=== PATIENT | female | born 1970 | race Caucasian/White ===

== ENCOUNTER 2024-08-31 15:30 | Outpatient (CLI) | payer SELFPAY ==
--- OUTSIDE RECORDS SUMMARY | 2024-08-31 15:39 | XMS_ITS | Clinical Summary ---
Author Organization [facility] Address [address] [place] [address] Care Team Providers Care Vice President Education Name Role Phone Huyen Vizcarra MD Primary Care Provider [phone] Huyen Vizcarra MD Unavailable [phone] [facility],non-owned Affiliates and Associated Physician Practices is amultiple site organization consisting of ambulatory clinics and hospital sitesin [place], [place], [place] and [place]. This disclosure is being madepursuant to the Care Everywhere program and may not contain all information available regarding this patient. Last updated 17.[facility] Allergies No known active allergies Medications * Be aware that medications may not be up to date on this document. Alwaysverify current medications with the patient. loratadine-pseud oephedrine 12hr (CLARITIN-D 12 HOUR) 5-120 MG tablet Take 1 tablet by mouth 2 times daily Active polyethylene glycol (GOLYTELY;NULYTE LY) 240 g solution Drink 1/2 of prep at 5pm the night before test. Finish the prep at 4am the day of test. 4000 mL 12/13/2019 Active Social History Tobacco Use Types Packs/Day Years Used Date Smoking Tobacco: Never Smokeless Tobacco: Never Alcohol Use Standard Drinks/Week Comments Yes 8 (1 standard drink = 0.6 oz pur e alcohol) drinks on weekends Comments No Sex and Gender Information Value Date Recorded Sex Assigned at Not on file Legal Sex Female 11:54 AM CDT Gender Identity Not on file Sexual Orientation Not on file Last Filed Vital Signs Vital Sign Reading Time Taken Comments Blood Pressure 126/92 12/14/2019 2:11 PM CDT Pulse 72 12/14/2019 2:11 PM CDT Temperature 36.6 C (97.8 F) 12/14/2019 2:11 PM CDT Respiratory Rate 16 12/14/2019 2:11 PM CDT Oxygen Saturation 100% 12/14/2019 2:11 PM CDT Inhaled Oxygen Concentration - - Weight 59.1 kg (130 lb 5 oz) 12/14/2019 12:16 PM CDT Height 160 cm (5' 3) 10/13/2018 5:54 PM CDT Body Mass Index 23.08 10/13/2018 5:54 PM CDT Plan of Treatment Health Maintenance Due Date Last Done Comments COLOGUARD (AGES 45-75) - COL ON CA SCREENING 1970 CT COLONOGRAPHY - COLON CA SCREENING 1970 FIT - COLON CA SCREENING 1970 FLEX SIG - COLON CA SCREENING 1970 LIPID TESTING 1970 MAMMOGRAM 1970 PAP SMEAR 1970 HIV SCREENING 01/13/1984 HEPATITIS C SCREENING 01/08/1987 DTAP/TDAP/TD VACCINES (1 - Tdap) 01/13/1988 HEPATITIS B VACCINE (1 of 3 - 19+ 3-dose series) 01/13/1988 PNEUMOCOCCAL VACCINE 50+ (1 of 1 - PCV) 2019 ZOSTER VACCINE (1 of 2) 2019 COVID-19 VACCINE (1 - 2023-2 5 season) 2023 DEPRESSION SCREENING 04/06/2024 INFLUENZA VACCINE (Season Ended) 2024 01/24/2019, 01/18/2018, 01/19/2017 COLON MONITORING 12/13/2029 12/14/2019, 12/14/2019 COLONOSCOPY - COLON CA SCREENING 12/13/2029 12/14/2019, 12/14/2019 Colorectal Cancer Screening 12/13/2029 HIB VACCINE Aged Out No longer eligi ble based on patient's age to complete this topic HPV VACCINE Aged Out No longer eligi ble based on patient's age to complete this topic MENINGOCOCCAL (Group B) VACCINE SHARED DECISION-MAKING Aged Out No longer eligible based on patient's age to complete this topic MENINGOCOCCAL GROUPS A/C/Y/W VACCINE Aged Out No longer eligible b ased on patient's age to complete this topic Procedures Procedure Name Priority Date/Time Associated Diagnosis Comments ENDOSCOPY, COLON, SCREENING Routine 12/14/2019 12:51 PM CDT from Last 3 Months or Most Recently Relevant to Health Maintenance Results * ENDOSCOPY, COLON, SCREENING (12/14/2019 12:51 PM CDT) Report Endoscopy POC Endoscopy Department Report _ Patient Name: Zeb Perez Procedure Date: 12/14/2019 12:51 PM Date of : 1970 Classification: Outpatient Gender: Female Ethnicity: Not or Race: White _ Providers: Catalina Patricio MD Referring MD: Huyen Vizcarra MD (Referring MD) Procedure: Colonoscopy Indications: Screening for colorectal malignant neoplasm, This is the patient's first colonoscopy Medications: Monitored Anesthesia Care Description of Procedure: Pre-Anesthesia Assessment: - Prior to the procedure, a History and Physical was performed, and patient medications and allergies were reviewed. The patient's tolerance of previous anesthesia was also reviewed. The risks and benefits of the procedure and the sedation options and risks were discussed with the patient. All questions were answered, and informed consent was obtained. Prior Anticoagulants: The patient has taken no previous anticoagulant or antiplatelet agents except for aspirin. ASA Grade Assessment: II - A patient with mild systemic disease. After reviewing the risks and benefits, the patient was deemed in satisfactory condition to undergo the procedure. After I obtained informed consent, the scope was passed under direct vision. Throughout the procedure, the patient's blood pressure, pulse, and oxygen saturations were monitored continuously. The PCF-[id number] was introduced through the anus and advanced to the cecum, identified by appendiceal orifice and ileocecal valve. The colonoscopy was performed without difficulty. The patient tolerated the procedure well. The quality of the bowel preparation was evaluated using the BBPS ([place] Bowel Preparation Scale) with scores of: Right Colon = 2 (minor amount of residual staining, small fragments of stool and/or opaque liquid, but mucosa seen well), Transverse Colon = 2 (minor amount of residual staining, small fragments of stool and/or opaque liquid, but mucosa seen well) and Left Colon = 3 (entire mucosa seen well with no residual staining, small fragments of stool or opaque liquid). The total BBPS score equals 7. The quality of the bowel preparation was good. The ileocecal valve, appendiceal orifice, and rectum were photographed. Findings: The perianal and digital rectal examinations were normal. The entire examined colon appeared normal on direct and retroflexion views. Estimated Blood Loss: Estimated blood loss: none. Complications: No immediate complications. Impression: - The entire examined colon is normal on direct and retroflexion views. - No specimens collected. Recommendation: - Patient has a contact number available for emergencies. The signs and symptoms of potential delayed complications were discussed with the patient. Return to normal activities tomorrow. Written discharge instructions were provided to the patient. - Resume previous diet. - Continue present medications. - Repeat colonoscopy in 10 years for surveillance. - Return to referring physician as previously scheduled. Attending Participation: I personally performed the entire procedure. Procedure Code(s): --- Professional --- 91183, Colonoscopy, flexible; diagnostic, including collection of specimen(s) by brushing or washing, when performed (separate procedure) Diagnosis Code(s): --- Professional --- Z12.11, Encounter for screening for malignant neoplasm of colon CPT copyright 2019 [employer]. All rights reserved. The codes documented in this report are preliminary and upon anesthesiology faculty review may be revised to meet current compliance requirements. Catalina Patricio MD 12/14/2019 1:45:57 PM This report has been signed electronically. Note Initiated On: 12/14/2019 12:51 PM Number of Addenda: 0 [facility] [address] [place] [address] [facility] 12/14/2019 12:5 1 PM CDT us Jessica Cr MD GI PROCEDURE ORDERABLES E dited Result - Final [facility] from Last 3 Months or Most Recently Relevant to Health Maintenance Insurance [place] [id number] [facility] Care Teams Vice President Education Relationship Specialty Start Date End Date Huyen Vizcarra MD [address] [place] [address] PCP - General 12/26/19 Huyen Vizcarra MD [address] [place] [address] Internal Medicine 12/26/19
--- OUTSIDE RECORDS SUMMARY | 2024-08-31 15:39 | XMS_ITS | Referral Summary ---
Author Organization [facility] Address [address] [place] [id number] Care Team Providers Care Policy And Planning Manager Name Role Phone Jessica Marquis MD Primary Care Provider Allergies Active Allergy Reactions Criticality Noted Date Comments Sulfa (Sulfonamide Antibiotics) Unknown 08/05 Medications acidophilus-pec tin, citrus 100 million cell-10 mg capsule Take by mouth Active estradioL (ESTRACE) 0.01 % (0.1 mg/gram) vaginal cream Apply nightly to vagina for 1 week, then Thursday// Thursday 42.5 g 5 2023 Active ALPRAZolam (XANAX) 0.25 mg tablet Take 1 tablet (0.25 mg total) by mouth nightly as needed for anxiety 15 tablet 09/08/2023 Active Allergy Relief,Nasal Decongest 10-240 mg per 24 hr tabletIndicatio ns:Environmenta l allergies Take 1 tablet by mouth once daily 90 tablet 08/01/2024 Active Active Problems No known active problems Immunizations Immunization Administration Dates Next Due Influenza, Quadrivalent, Spl it, Preservative Free, Intramuscular 01/14/2021,01/16/2020,01/24/2019,01/18,01/19/2017 Influenza, Unspecified 01/21/2023(Deferr ed: Patient Refused),01/15/2022(Deferred: Patient Refused),01/04/2022(Deferred: Patient Refused) Pfizer SARS-CoV-2 Monovalent Vaccination (12+ Yrs) PURPLE 07/22/2020,07/01/2020 Tdap 08/28/2020 ZOSTER Recombinant 10/04/2019,05/04/2019 Social History Tobacco Use Types Packs/Day Years Used Date Smoking Tobacco: Never Tobacco Cessation:Counseling Given: Not Answered AUDIT-C Answer Date Recorded Q1: How often do you have a drink containing alc ohol? Monthly or less 08/28/2020 Q2: How many drinks containi ng alcohol do you have on a typical day when you are drinking? 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 Gender Identity Not on file Sexual Orientation Not on file Last Filed Vital Signs Vital Sign Reading Time Taken Comments Blood Pressure 110/72 09/21/2023 1:28 PM CDT Pulse 84 09/21/2023 1:28 PM CDT Temperature 37.1 C (98.8 F) 09/21/2023 1:28 PM CDT Respiratory Rate - - Oxygen Saturation 98% 09/21/2023 1:28 PM CDT Inhaled Oxygen Concentration - - Weight 61.1 kg (134 lb 9.6 oz) 09/21/2023 1:28 P M CDT Height 160 cm (5' 3) 09/21/2023 1:28 PM CDT Body Mass Index 23.84 09/21/2023 1:28 PM CDT Plan of Treatment Not on file Procedures Procedure Name Priority Date/Time Associated Diagnosis Comments SCREENING MAMMOGRAM BILATERAL W RICCO Schedule Routine, Read Routine (OP Routine) 05/12/2024 1:11 PM PIT LABORER Screening mammogram, encounter for PAP AND HIGH RISK HPV, REFLEX TO GENOTYPING Routine 2023 12:10 PM CDT Well woman exam COLONOSCOPY Routine 12/14/2019 from Last 3 Months or Most Recently Relevant to Health Maintenance Results * Screening Mammogram Bilateral W Ricco (05/12/2024 1:11 PM PIT LABORER) Anatomical Region Laterality Modality Breast Bilateral Mammography Impressions 05/16/2024 3:43 PM PIT LABORER BI-RADS ATLAS category (overall): 1 - Negative There is no mammographic evidence of malignancy. A 1 year screening mammogram is recommended. The patient has been or will be contacted. We recommend annual screening mammography for women at average risk of breast cancer beginning at age 40, based on guidelines of the [place] (ACR Practice Parameter for the Performance of Screening and Diagnostic Mammography) and [place] [employer]. For women with and elevated risk of breast cancer, please refer to the ACR Practice Parameter for specific screening recommendations. The patient will be entered into a reminder system with a target due date of 1 year for her next screening exam. Narrative 05/16/2024 3:43 PM PIT LABORER Screening Mammogram Bilateral W Ricco: 05/12/24 The study was acquired using full field digital technology and interpreted from soft copy. 2D digital mammographic views, as well as 3D digital tomosynthesis were performed in the CC and MLO projections. This study was resulted using Computer-Aided Detection (CAD). CLINICAL: Screening mammogram, encounter for. No relevant medical history has been documented for this patient. History of breast cancer in Neg Hx. No comparisons were made when reading this study. BREAST TISSUE: The breasts are heterogeneously dense, which may obscure small masses. FINDINGS: No suspicious masses, suspicious calcifications, or other suspicious findings are seen within either breast. There has been no suspicious change. us Self Screening Mammogram IMG MAMMO PROCEDURES Fi nal Result * Pap and High Risk HPV and Genotyping (Cytology Component) (2023 12:10 PM CDT) Endocervical (Pap test) 2023 12:10 PM CDT 01/13/2023 12:10 PM CDT Narrative PATHOLOGY [facility] - 01/15/2023 3:48 PM CDT [facility] Department of Pathology [address] [place] [id number] Final Report with Addendum Note to Patients: This report may contain a detailed description of human tissue sent by a health care provider to the laboratory for pathologic evaluation. The content of this report is essential for diagnosis and may provide important critical findings. This information may be unfamiliar to patients to review without a medical professional present. It is advised that the patient review this report in the presence of a health care provider who can answer questions and explain the details. Patient Name: ZEB PEREZ Address: [address] [place] [address] Gender: F : 1970 (Age: 53) Service: Location: N : [id number] [facility] #: [id number] Patient Type: [facility] SPECIMEN Taken: 2023 Received: 01/13/2023 Accessioned:: 01/13/2023 Reported: 01/15/2023 Physician(s): Lizabeth Graff M.D. [facility] Diagnosis: SOURCE OF SPECIMEN SCREENING THIN PREP IMAGED PAP w/ HPV: STATEMENT OF ADEQUACY - Specimen satisfactory for evaluation (vaginal pap) GENERAL CATEGORIZATION: - Negative for intraepithelial lesion or malignancy JOHNATHAN Hernandes(ASCP)JOHNATHAN Daniel(ASCP) Report Electronically Reviewed and Signed Out By JOHNATHAN Daniel(ASCP) 01/15/2023 15:48:35Addenda: HPV Test Interpretation HPV HR 16- Not detected HPV HR 18- Not detected HPV HR non 16/18- Detected Interpretive Data Nucleic acid amplification for detection of high-risk Human Papilloma virus (HPV) is performed by the Carole Zuhair 6800 HPV test. This assay specifically detects HPV-16 and HPV-18 genotypes. The following HPV genotypes are detected as high-risk HPV: HPV-31, 33, 35, 39, 45, 51, 52, 56, 58, 59, 66, and 68. This assay has been approved by the [place] Food and Drug Administration for detection of HPV in cervical specimens collected by a physician using an endocervical brush/spatula or cervical broom and placed in the ThinPrep Pap Test PreservCyt collection containers. The performance characteristics of this test have been verified by the [facility] laboratory. Correlate with reported cytology results, as applicable. Interpretive data last revised 22 JOHNATHAN Daniel(ASCP)Report Electronically Reviewed and Signed Out By JOHNATHAN Daniel(ASCP) 01/14/2023 15:30:50 Specimen(s) Received: A: SCREENING THIN PREP IMAGED PAP w/ HPV Clinical History: Menstrual History: Hysterectomy The Pap test is a screening test used to aid in the detection of cervical cancer and its precursors. It should not be the sole means by which malignant and premalignant lesions are diagnosed. Both false negative and false positive results may occur. It also has poor sensitivity for the detection of endometrial lesions and should not be used to evaluate suspected endometrial abnormalities. For these reasons it is most important to obtain Pap tests at regular intervals. The performance characteristics of some immunohistochemical stains, fluorescence in-situ hybridization tests and immunophenotyping by flow cytometry cited in this report (if any) were determined by the Surgical Pathology Department at [facility] as part of an ongoing corporate quality manager program and in compliance with federally mandated regulations drawn from the Clinical Laboratory Improvement Act of 1988 (CLIA '88). Some of these tests rely on the use of analyte specific reagents and are subject to specific labeling requirements by the US Food and Drug Administration. Such diagnostic tests may only be performed in a facility that is certified by the Department of Health and Human Services as a high complexity laboratory under CLIA '88. The FDA has determined that such clearance or approval is not necessary. This test is used for clinical purposes. It should not be regarded as investigational or for research. Nevertheless, federal rules concerning the medical use of analyte specific reagents require that the following disclaimer be attached to the report: This test was developed and its performance characteristics determined by the Surgical Pathology Department [facility]. It has not been cleared or approved by the U. S. Food and Drug Administration. Lizabeth Graff MD LAB CYTOLOGY ORDERABLES Final Result PATHOLOGY [facility] * Colonoscopy (12/14/2019) Anatomical Region Laterality Modality Other 12/14/2019 Narrative 12/14/2019 Report in care everywhere Historical Provider ENDOSCOPY PROCEDURES Veronica l Result from Last 3 Months or Most Recently Relevant to Health Maintenance Insurance [facility] Care Teams Policy And Planning Manager Relationship Specialty Start Date End Date Jessica Marquis MD PCP - General Internal Medicine 08/28/20
--- OUTSIDE RECORDS SUMMARY | 2024-08-31 15:39 | XMS_ITS | Encounter Summary ---
Author Organization [facility] Address [address] [address] Care Team Providers Care Respiratory Therapy Instructor Name Role Phone Huyen Vizcarra MD Primary Care Provider [phone] Huyen Vizcarra MD Unavailable [phone] Encounter Details Date Type Department Care Team (Late st Contact Info) Description 03/06/2022 Lab Requisition [facility] [address] [place] [id number] Harman Castaneda MD [address] [facility] [place], [place] [id number] Social History Tobacco Use Types Packs/Day Years [...] on file Sexual Orientation Not on file documented as of this encounter Functional Status * Is person deaf or have serious hearing difficulty? Answer Date of Assessment Author No 12/14/2019 2:13 PM AMELIET Rory Guevara RN * Is person blind or have serious difficulty seeing? Answer Date of Assessment Author No 12/14/2019 2:13 PM AMELIET Rory Guevara RN * Does person have serious difficulty walking/climbing stairs? Answer Date of Assessment Author No 12/14/2019 2:13 PM Rory Alcantar RN * Does person have difficulty dressing/bathing? Answer Date of Assessment Author No 12/14/2019 2:13 PM Rory Alcantar RN * Does person have difficulty doing errands alone? Answer Date of Assessment Author No 12/14/2019 2:13 PM Rory Alcantar RN documented as of this encounter Mental Status * Does person have difficulty concentrating/remembering/making decisions? Answer Entry Date Author No 12/14/2019 2:13 PM Rory Alcantar RN documented in this encounter Plan of Treatment Not on file documented as of this encounter Procedures Procedure Name Priority Date/Time Associated Diagnosis Comments DERMATOPATHOLOGY Routine 03/04/2022 12:0 0 AM [facility]LE [facility]ER documented in this encounter Results * DERMATOPATHOLOGY (03/04/2022 12:00 AM MULE RIDER) Case Report Dermatopathology Report Case: [id number] Authorizing Provider: Harman Castaneda MD Collected: 03/04/2022 12:00 AM Ordering Location: [facility] Derm[facility] Lab Received: 03/06/2022 06:10 AM Pathologist: Gabi Morel MD Specimen: Skin, right lower medial leg 2 3:19 PM [facility] Final Diagnosis Specimen A. 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 SCCA PATH: [id number] 2 3:19 PM [facility] Gross Description Specimen A: Received is one formalin filled container labeled with the patient's name and designated right lower medial leg. The specimen consists of a shave biopsy measuring 7x5x2 mm. Jar 0. 2 3:19 PM [facility]ER[facility] Microscopic Description Specimen A. SKIN, right lower medial leg: Sections show an endo exophytic crateriform lesion with a keratotic plug, formed by confluent follicle-like structures with relatively large keratinocytes and neutrophilic abscesses. 2 3:19 PM [facility] Disclaimer An external and internal positive and negative controls are appropriate for the histochemical, immunohistochemical and immunofluorescence stain(s) in this case (if any), except where stated explicitly. The performance characteristics of the stain(s) cited in this report were developed and its performance characteristic determined by the Dermatopathology Laboratory at [facility], directed by Dr. Shante Smith. These tests need not be, and therefore are not, approved by the [place] Food and Drug Administration. The tests are used for clinical purposes. Billing Codes Specimen Charges Stain Charges 84092 1 2 3:19 PM [facility] Embedded Images 2 3:19 PM [facility] Pathology/Cytolog y TISSUE SPECIMEN FROM SKIN / Unknown 03/04/2022 03/06/2022 6:10 AM [facility] Harman Castaneda MD LAB - PATHOLOGY/CYTOLOGY ORDER CHAVA Final Result DERMATOPATHOLOGY LABORATORY [facility] - Department of Dermatology [facility] [address] [place] [address], [address] [phone] documented in this encounter Visit Diagnoses Not on filedocumented in this encounter Care Teams Respiratory Therapy Instructor Relationship Specialty Start Date End Date Huyen Vizcarra MD [address], [place] [address] PCP - General 12/26/19 Huyen Vizcarra MD [address] [place] [address] Internal Medicine 12/26/19 documented as of this encounter
--- OUTSIDE RECORDS SUMMARY | 2024-08-31 15:39 | XMS_ITS | Clinical Summary ---
Author Organization [facility] at the Medical Office Building Address [address] [place] [phone] Care Team Providers Care Assistant Casino Shift Manager Name Role Phone Jessica Marquis MD [...] PURPLE 07/22/2020,07/01/2020 Tdap 08/28/2020 ZOSTER Recombinant 10/04/2019,05/04/2019 Surgical History Surgery Date Site/Laterality Comments PARTIAL HYSTERECTOMY age 33 Medical History Medical History Date Comments Allergic Abnormal Pap smear of cervix 2023 + H PV HR Family History Medical History Relation Name Comments No Known Problems Brother 1 No Known Problems Brother 2 No Known Problems Father Heart attack Paternal Grandfather No Known Problems Sister Breast cancer Neg Hx Colon cancer Neg Hx Ovarian cancer Neg Hx Pancreatic cancer Neg Hx Prostate cancer Neg Hx Uterine cancer Neg Hx Relation Name Status Comments Brother 1 Alive Brother 2 Alive Brother 3 Father Alive Mother Alive Paternal Grandfather Sister Alive Social History Tobacco Use Types Packs/Day Years [...] on file Legal Sex Female 6:47 PM IRONWORKER APPRENTICE SHOP Gender Identity Not on file Sexual Orientation Not on file Obstetrics History Para Term AB IAB SAB Ectopic Multiple Livin g Live Births 2 2 2 2 Date Outcome GA Total Labor Labor/2nd/3rd Weight Sex Type Anes PTL Silvia A1 A5 Name Clin Term Term Last Filed Vital Signs Vital Sign Reading [...] 09/21/2023 1:28 PM CDT Plan of Treatment Health Maintenance Due Date Last Done Comments Hepatitis C Screening 1970 Hepatitis B Screening 1987 Covid-19 Vaccine ( season) 2023 07/22/2020, 07/01/2020 Depression Screening 09/20/2024 09/21/2023, 09/08/2022, 08/29/2021, Additional history exists Regular Well Visit/Exam 18-64 09/20/2024 09/21/2023, 2023, 09/08/2022, Additional history exists Influenza Vaccine (Season Ended) 2024 01/14/2021, 01/16/2020, 01/24/2019, Additional history exists Breast Cancer Screening-Mammogram 05/12/2025 05/12/2024, 11/11/2022, 11/11/2022, Additional history exists Colon Cancer Screening-Colonoscopy 12/13/2029 12/14/2019 DTaP/Tdap/Td Vaccine (2 - Td or Tdap) 08/28/2030 08/28/2020 Zoster Vaccine Completed 10/04/2019, 05/04/2019 Colon Cancer Screening-CT Colonography Discontinued 12/14/2019 Colon Cancer Screening-DNA Stool Discontinued 12/14/2019 Colon Cancer Screening-FIT Discontinued 12/14/2019 Colon Cancer Screening-Sigmoidoscopy Discontinued 12/14/2019 Cervical Cancer Screening Discontinued 2023, 12/2022 Pneumococcal vaccine <65 Aged Out No longer eligible based on patient's age to complete this topic Procedures Procedure Name Priority Date/Time Associated Diagnosis Comments SCREENING MAMMOGRAM BILATERAL W RICCO Schedule Routine, Read Routine (OP Routine) 05/12/2024 1:11 PM IRONWORKER APPRENTICE SHOP Screening mammogram, encounter for PAP AND HIGH RISK HPV, REFLEX TO GENOTYPING Routine 2023 12:10 PM CDT Well woman exam COLONOSCOPY Routine 12/14/2019 from Last 3 Months or Most Recently Relevant to Health Maintenance Results * Screening Mammogram Bilateral W Ricco (05/12/2024 1:11 PM IRONWORKER APPRENTICE SHOP) Anatomical Region Laterality Modality Breast Bilateral Mammography Impressions 05/16/2024 3:43 PM IRONWORKER APPRENTICE SHOP BI-RADS ATLAS category (overall): 1 - Negative There is no mammographic evidence of malignancy. A 1 year screening mammogram is recommended. The patient has been or will be contacted. We recommend annual screening mammography for women at average risk of breast cancer beginning at age 40, based on guidelines of the [employer] (ACR Practice Parameter for the Performance of Screening and Diagnostic Mammography) and [employer]. For women with and elevated risk of breast cancer, please refer to the ACR Practice Parameter for specific screening recommendations. The patient will be entered into a reminder system with a target due date of 1 year for her next screening exam. Narrative 05/16/2024 3:43 PM IRONWORKER APPRENTICE SHOP Screening Mammogram Bilateral W Ricco: 05/12/24 The [...] CDT 01/13/2023 12:10 PM CDT Narrative PATHOLOGY [facility] - 01/15/2023 3:48 PM CDT [facility] Department of Pathology [address] [place] [id number] Final Report with Addendum Note to [...] the details. Patient Name: ZEB PEREZ Address: [address] [place] [address] Gender: F : 1970 (Age: 53) Service: Location: [facility] #: [id number] Patient Type: [facility] SPECIMEN Taken: 2023 Received: 01/13/2023 Accessioned:: 01/13/2023 Reported: 01/15/2023 Physician(s): Lizabeth Graff M.D. [facility] Diagnosis: SOURCE OF SPECIMEN SCREENING THIN PREP [...] this test have been verified by the [facility] Molecular Infectious Disease laboratory. Correlate with reported cytology results, as applicable. Interpretive data last revised 23 JOHNATHAN Daniel(ASCP)Report Electronically Reviewed and Signed Out [...] determined by the Surgical Pathology Department at [facility] as part of an ongoing quality control industrial engineer program and in compliance with federally mandated [...] characteristics determined by the Surgical Pathology Department [facility]. It has not been cleared or approved by the U. S. Food and Drug Administration. Lizabeth Graff MD LAB CYTOLOGY ORDERABLES Final Result PATHOLOGY [facility] * Colonoscopy (12/14/2019) Anatomical Region Laterality Modality Other 12/14/2019 Narrative 12/14/2019 Report in care everywhere Historical Provider ENDOSCOPY PROCEDURES Veronica l Result from Last 3 Months or Most Recently Relevant to Health Maintenance Insurance [facility] Care Teams Assistant Casino Shift Manager Relationship Specialty Start Date End Date Jessica Marquis MD PCP - General Internal Medicine 08/28/20
--- OUTSIDE RECORDS SUMMARY | 2024-08-31 15:39 | XMS_ITS | Clinical Summary ---
Author Organization [facility] Address [address] [place] [address] Phone Care Team Providers Care Financial Sales Representative Name Role Phone Unavailable Primary Care Provider Unavailabl e Allergies Active Allergy Reactions Criticality Noted Date Comments Sulfa (Sulfonamide Antibiotics) Unknown 08/05 Medications hydrOXYzine HCL (ATARAX) 25 mg tablet Take 25 mg by mouth. 08/28/2020 Active loratadine-pseud oephedrine (CLARITIN-D) 10-240 mg Extended Release 24 hour tablet Take 1 Tablet by mouth. 08/29/2020 Active Active Problems No known active problems Immunizations Immunization Administration Dates Next Due INFLUENZA VACCINE QUADRIVALE NT 3 YR UP PF IM 01/18/2018,01/19/2017 INFLUENZA VACCINE QUADRIVALE NT 6 MOS UP PF IM 01/14/2021,01/16/2020,01/24/2019 Social History Tobacco Use Types Packs/Day Years Used Date Smoking Tobacco: Never Assessed Comments Unknown Sex and Gender Information Value Date Recorded Sex Assigned at Not on file Legal Sex Female 10:04 AM CDT Gender Identity Not on file Sexual Orientation Not on file Last Filed Vital Signs Vital Sign Reading Time Taken Comments Blood Pressure 121/87 08/30/2020 10:26 AM CDT Pulse 90 08/30/2020 10:26 AM CDT Temperature 37.2 C (98.9 F) 08/30/2020 10:26 AM CDT Respiratory Rate 16 08/30/2020 10:26 AM CDT Oxygen Saturation 99% 08/30/2020 10:26 AM CDT Inhaled Oxygen Concentration - - Weight 56.7 kg (125 lb) 08/30/2020 10:26 AM CDT Height 160 cm (5' 3) 08/30/2020 10:26 AM CDT Body Mass Index 22.14 08/30/2020 10:26 AM CDT Plan of Treatment Health Maintenance Due Date Last Done Comments HEPATITIS B VACCINES (1 of 3 - 19+ 3-dose series) 01/13/1988 FIT-DNA Q 3 years 2014 FIT/FOBT Q 1 year 2014 Flex Sig/CT Colonography Q 5 years 2014 INFLUENZA VACCINE (#1) 2023 , 01/16/2020, 01/24/2019, Additional history exists BREAST CANCER SCREENING 11/12/2023 11/12/19 23, 01/08/2021, 01/08/2021, Additional history exists COVID-19 Vaccine ( - 2023-2 5 season) 2023 07/22/2020, 07/01/2020 COLORECTAL SCREENING 12/13/2029 12/14/2019, 12/14/19 20 Colorectal Cancer Screening 12/13/2029 DTAP/TDAP/TD VACCINES (2 - T d or Tdap) 08/28/2030 08/28/2020 ZOSTER VACCINE Completed 10/04/2019, 05/04/2019 Procedures Procedure Name Priority Date/Time Associated Diagnosis Comments MAMMO 3D MARIA ANTONIA SCREEN BILAT W OR WO CAD Routine 11/11/2022 3:16 PM CDT Breast cancer screening by mammogram from Last 3 Months or Most Recently Relevant to Health Maintenance Results * MAMMO SCRN BILAT 3D MARIA ANTONIA W OR WO CAD (11/11/2022 3:16 PM CDT) Anatomical Region Laterality Modality Breast Bilateral Mammography 11/11/2022 3:22 PM CDT Narrative 11/11/2022 3:28 PM CDT EXAM: MAMMO SCRN BILAT 3D MARIA ANTONIA W OR WO CAD DATE: 11/11/2022 HISTORY: Breast cancer screening by mammogram COMPARISON: 01/08/2021 DENSITY: Heterogeneously dense which could obscure small masses. FINDINGS: Bilateral screening mammograms with tomosynthesis were performed. Computer assisted detection was utilized. Little significant change is noted. The parenchymal pattern is essentially unchanged. No new dominant mass, architectural distortion, nipple retraction, skin thickening, or suspicious calcifications are seen. ASSESSMENT: BIRADS Category 1: Negative mammogram. Digital technology was employed plus computer-aided detection software was utilized in interpretation of these images. Jessica Marquis MD MAMMO ORDERAB LES Final Result from Last 3 Months or Most Recently Relevant to Health Maintenance Insurance [facility] [place] [id number]
[2024-08-31 15:58] LABS: Hematocrit 42.4 % (37.0-47.0); Hemoglobin 13.8 g/dL (12.0-15.0); Mean Corpuscular HGB Conc 32.5 g/dl (32-36); Mean Corpuscular Hemoglobin 28.3 pg (26-34); Mean Corpuscular Volume 86.9 fl (80-100); Mean Platelet Volume 10.2 fl (7.4-10.4); Platelet Count Result 265 k/mm3 (150-375); Red Blood Count 4.88 M/mm3 (4.2-5.4); Red Cell Distribution Width 13.7 % (11.5-14.5); White Blood Count 5.9 K/mm3 (4.5-10.0)
[2024-08-31 16:07] LABS: Albumin Level 4.8 g/dL (3.5-5.1); Anion Gap 6 mmol/L (4-12); Blood Urea Nitrogen 17 mg/dL (7-17); Calcium 10.1 mg/dL (8.4-10.2); Carbon Dioxide 30 mmol/L (22-30); Chloride 101 mmol/L (98-107); Estimated Glomerular Filt Rate > 60; Glucose 96 mg/dL (65-110); Potassium 4.2 mmol/L (3.4-5.0); Sodium 137 mmol/L (137-145)
[2024-08-31 16:14] LABS: Prealbumin 18.2 mg/dL (17.6-36.0)
[2024-08-31 18:01] LABS: Iron 87 ug/dL (37-170)
[2024-09-05 14:08] LABS: Vitamin B1 24 nmol/L (8-30)
== END 2024-08-31 15:31 | disposition home or self-care (01) ==
PROVIDERS: PCP Internal Medicine; Visit Provider Surgery Plastic and Reconstructive Surgery
DX: Z01.812 Encounter for preprocedural laboratory examination (principal)
CPT/HCPCS: 36415; 80048; 82040; 83540; 84134; 84425; 85027

== ENCOUNTER 2024-09-20 10:21 | Outpatient (CLI) | payer OTHER, SELFPAY ==
--- NOTE | 2024-09-20 10:37 | ECG_ITS ---
Test Date: 2024-09-20 10:47:02 Measurements Intervals [place] Rate: 79 P: 79 UT: 140 QRS: 77 QRSD: 81 T: 58 QT: 354 QTc: 406 Interpretive Statements SINUS RHYTHM BASELINE ARTIFACT- I, II, III, AVR, AVL NORMAL ECG No previous ECG available for comparison Electronically Signed On 09-20-2024 12:02:43 CDT by Luis Ellsworth D.O.
--- OUTSIDE RECORDS SUMMARY | 2024-09-20 11:37 | XMS_ITS | Encounter Summary ---
Author Organization [facility] Address [address] [place] [address] Care Team Providers Care Service Provider Name Role Phone Huyen Vizcarra MD Primary Care Provider [phone] Huyen Vizcarra MD Unavailable [phone] Encounter Details Date Type Department Care Team (Late st Contact Info) Description 03/06/2022 Lab Requisition [facility] Care DermPath Lab [address] [place] [id number] Harman Castaneda MD [address] [facility] [address] [place], [place] [id number] Social History Tobacco Use Types Packs/Day Years [...] Comments DERMATOPATHOLOGY Routine 03/04/2022 12:0 0 AM DERMATOLOGICAL SURGEON documented in this encounter Results * DERMATOPATHOLOGY (03/04/2022 12:00 AM DERMATOLOGICAL SURGEON) Case Report Dermatopathology Report Case: [id number] Authorizing Provider: Harman Castaneda MD Collected: 03/04/2022 12:00 AM Ordering Location: [facility] DermPath Lab Received: 03/06/2022 06:10 AM Pathologist: Gabi Morel MD Specimen: Skin, right lower medial leg 2 3:19 PM [facility] DERMATOPATHOLOGY LABORATORY Final Diagnosis Specimen A. SKIN, right lower medial leg: SQUAMOUS CELL CARCINOMA, KERATOACANTHOMA TYPE (C44.722) 2 3:19 PM [facility] DERMATOPATHOLOGY LABORATORY at 1519 DERMATOLOGICAL SURGEON Clinical History BCCA vs. SCCA PATH: [id number] 2 3:19 PM [facility] DERMATOPATHOLOGY LABORATORY Gross Description Specimen A: Received is one formalin filled container labeled with the patient's name and designated right lower medial leg. The specimen consists of a shave biopsy measuring 7x5x2 mm. Jar 0. 2 3:19 PM [facility] DERMATOPATHOLOGY LABORATORY Microscopic Description Specimen A. SKIN, right lower medial leg: Sections show an endo exophytic crateriform lesion with a keratotic plug, formed by confluent follicle-like structures with relatively large keratinocytes and neutrophilic abscesses. 2 3:19 PM DERMATOLOGICAL SURGEON DERMATOPATHOLOGY LABORATORY Disclaimer An external and internal positive and negative controls are appropriate for the histochemical, immunohistochemical and immunofluorescence stain(s) in this case (if any), except where stated explicitly. The performance characteristics of the stain(s) cited in this report were developed and its performance characteristic determined by the Dermatopathology Laboratory at [facility], directed by Dr. Shante Smith. These tests need not be, and therefore are not, approved by the [place] Food and Drug Administration. The tests are used for clinical purposes. Billing Codes Specimen Charges Stain Charges 11283 1 2 3:19 PM DERMATOLOGICAL SURGEON DERMATOPATHOLOGY LABORATORY Embedded Images 2 3:19 PM DERMATOLOGICAL SURGEON DERMATOPATHOLOGY LABORATORY Pathology/Cytolog y TISSUE SPECIMEN FROM SKIN / Unknown 03/04/2022 03/06/2022 6:10 AM DERMATOLOGICAL SURGEON Harman Castaneda MD LAB - PATHOLOGY/CYTOLOGY ORDER CHAVA Final Result DERMATOPATHOLOGY LABORATORY [facility] - Department of Dermatology [facility] Medicine [address] [place] [address], [address] [phone] documented in this encounter Visit Diagnoses Not on filedocumented in this encounter Care Teams Service Provider Relationship Specialty Start Date End Date Huyen Vizcarra MD [address], [place] [address] PCP - General 12/26/19 Huyen Vizcarra MD [address] [place] [address] Internal Medicine 12/26/19 documented as of this encounter
--- OUTSIDE RECORDS SUMMARY | 2024-09-20 11:38 | XMS_ITS | Referral Summary ---
Author Organization [facility] at the Medical Office Building Address [address] [place] [phone] Care Team Providers Care Office Administrator Name Role Phone Jessica Marquis MD Primary [...] on file Legal Sex Female 6:47 PM BOX STACKER Gender Identity Not on file Sexual Orientation [...] Read Routine (OP Routine) 05/12/2024 1:11 PM BOX STACKER Screening mammogram, encounter for PAP AND HIGH RISK HPV, REFLEX TO GENOTYPING Routine 2023 12:10 PM CDT Well woman exam COLONOSCOPY Routine 12/14/2019 from Last 3 Months or Most Recently Relevant to Health Maintenance Results * Screening Mammogram Bilateral W Ricco (05/12/2024 1:11 PM BOX STACKER) Anatomical Region Laterality Modality Breast Bilateral Mammography Impressions 05/16/2024 3:43 PM BOX STACKER BI-RADS ATLAS category (overall): 1 - Negative There is no mammographic evidence of malignancy. A 1 year screening mammogram is recommended. The patient has been or will be contacted. We recommend annual screening mammography for women at average risk of breast cancer beginning at age 40, based on guidelines of the [employer] (ACR Practice Parameter for the Performance of Screening and Diagnostic Mammography) and [employer]. For women with and elevated risk of breast cancer, please refer to the ACR Practice Parameter for specific screening recommendations. The patient will be entered into a reminder system with a target due date of 1 year for her next screening exam. Narrative 05/16/2024 3:43 PM BOX STACKER Screening Mammogram Bilateral W Ricco: 05/12/24 The [...] CDT 01/13/2023 12:10 PM CDT Narrative PATHOLOGY [facility] - 01/15/2023 3:48 PM CDT [facility] Department of Pathology [address] [place] [address] Final Report with Addendum Note to [...] the details. Patient Name: ZEB PEREZ Address: [address] [place] [address] Gender: F : 1970 (Age: 53) Service: Location: N : [id number] [facility] #: [id number] Patient Type: [facility] SPECIMEN Taken: 2023 Received: 01/13/2023 Accessioned:: 01/13/2023 Reported: 01/15/2023 Physician(s): Lizabeth Graff M.D. [facility] Diagnosis: SOURCE OF SPECIMEN SCREENING THIN PREP [...] test have been verified by the [facility] Molecular Infectious Disease laboratory. Correlate with reported [...] determined by the Surgical Pathology Department at [facility] as part of an ongoing billing and quality technician program and in compliance with federally mandated [...] characteristics determined by the Surgical Pathology Department [facility]. It has not been cleared or approved by the U. S. Food and Drug Administration. Lizabeth Graff MD LAB CYTOLOGY ORDERABLES Final Result PATHOLOGY [facility] * Colonoscopy (12/14/2019) Anatomical Region Laterality Modality Other 12/14/2019 Narrative 12/14/2019 Report in care everywhere Historical Provider ENDOSCOPY PROCEDURES Veronica l Result from Last 3 Months or Most Recently Relevant to Health Maintenance Insurance [facility] H[facility]/PPO Address: [address] [address] Care Teams Office Administrator Relationship Specialty Start Date End Date Jessica Marquis MD PCP - General Internal Medicine 08/28/20
--- OUTSIDE RECORDS SUMMARY | 2024-09-20 11:38 | XMS_ITS | Clinical Summary ---
Author Organization [facility] at the Medical Office Building Address [address] [place] [phone] Care Team Providers Care Computer Networking Instructor Name Role Phone Jessica Marquis MD Primary [...] on file Legal Sex Female 6:47 PM MANAGER MASSAGE DEPARTMENT Gender Identity Not on file Sexual Orientation [...] Read Routine (OP Routine) 05/12/2024 1:11 PM MANAGER MASSAGE DEPARTMENT Screening mammogram, encounter for PAP AND HIGH RISK HPV, REFLEX TO GENOTYPING Routine 2023 12:10 PM CDT Well woman exam COLONOSCOPY Routine 12/14/2019 from Last 3 Months or Most Recently Relevant to Health Maintenance Results * Screening Mammogram Bilateral W Ricco (05/12/2024 1:11 PM MANAGER MASSAGE DEPARTMENT) Anatomical Region Laterality Modality Breast Bilateral Mammography Impressions 05/16/2024 3:43 PM MANAGER MASSAGE DEPARTMENT BI-RADS ATLAS category (overall): 1 - Negative There is no mammographic evidence of malignancy. A 1 year screening mammogram is recommended. The patient has been or will be contacted. We recommend annual screening mammography for women at average risk of breast cancer beginning at age 40, based on guidelines of the [employer] (ACR Practice Parameter for the Performance of Screening and Diagnostic Mammography) and [employer]. For women with and elevated risk of breast cancer, please refer to the ACR Practice Parameter for specific screening recommendations. The patient will be entered into a reminder system with a target due date of 1 year for her next screening exam. Narrative 05/16/2024 3:43 PM MANAGER MASSAGE DEPARTMENT Screening Mammogram Bilateral W Ricco: 05/12/24 The [...] CDT 01/13/2023 12:10 PM CDT Narrative PATHOLOGY [facility] - 01/15/2023 3:48 PM CDT [facility] Department of Pathology [address] [place] [id number] Final Report with Addendum Note to [...] the details. Patient Name: ZEB PEREZ Address: [address] [place] [address] Gender: F : 1970 (Age: 53) Service: Location: [facility] #: [id number] Patient Type: [facility] SPECIMEN Taken: 2023 Received: 01/13/2023 Accessioned:: 01/13/2023 Reported: 01/15/2023 Physician(s): Lizabeth Graff M.D. [facility] Diagnosis: SOURCE OF SPECIMEN SCREENING THIN PREP [...] this test have been verified by the [facility] Molecular Infectious Disease laboratory. Correlate with reported [...] determined by the Surgical Pathology Department at [facility] as part of an ongoing quality assurance monitor chassis program and in compliance with federally mandated [...] characteristics determined by the Surgical Pathology Department [facility]. It has not been cleared or approved by the U. S. Food and Drug Administration. Lizabeth Graff MD LAB CYTOLOGY ORDERABLES Final Result PATHOLOGY [facility] * Colonoscopy (12/14/2019) Anatomical Region Laterality Modality Other 12/14/2019 Narrative 12/14/2019 Report in care everywhere Historical Provider ENDOSCOPY PROCEDURES Veronica l Result from Last 3 Months or Most Recently Relevant to Health Maintenance Insurance [facility] Care Teams Computer Networking Instructor Relationship Specialty Start Date End Date Jessica Marquis MD PCP - General Internal Medicine 08/28/20
--- OUTSIDE RECORDS SUMMARY | 2024-09-20 11:38 | XMS_ITS | Clinical Summary ---
Author Organization [facility] Address [address] [place] [address] Phone Care Team Providers Care Butter Grader Name Role Phone Unavailable Primary Care Provider [...] Most Recently Relevant to Health Maintenance Insurance [facility] [place] [id number]
--- OUTSIDE RECORDS SUMMARY | 2024-09-20 11:38 | XMS_ITS | Clinical Summary ---
Author Organization [facility] Address [address] [place] [address] Care Team Providers Care Engineering Inspection Assistant Name Role Phone Huyen Vizcarra MD Primary Care Provider [phone] Huyen Vizcarra MD Unavailable [phone] Source Comments [facility],non-owned Affiliates and Associated Physician Practices is amultiple site organization consisting of ambulatory clinics and hospital sitesin [place], [place], [place] and [place]. This disclosure is being madepursuant to the Care Everywhere program and may not contain all information available regarding this patient. Last updated 17.[facility] Allergies No known active allergies Medications [...] SCREENING 1970 LIPID TESTING 1970 MAMMOGRAM 1969 HIV SCREENING 01/13/1984 HEPATITIS C SCREENING 01/08/1987 DTAP/TDAP/TD VACCINES (1 - Tdap) 01/13/1988 HEPATITIS B VACCINE (1 of 3 - 19+ 3-dose series) 01/13/1988 PAP SMEAR 1990 PNEUMOCOCCAL VACCINE 50+ (1 of 1 - [...] bowel preparation was evaluated using the BBPS ([place] Bowel Preparation Scale) with scores of: Right [...] entire procedure. Procedure Code(s): --- Professional --- 10464, Colonoscopy, flexible; diagnostic, including collection of specimen(s) by brushing or washing, when performed (separate procedure) Diagnosis Code(s): --- Professional --- Z12.11, Encounter for screening for malignant neoplasm of colon CPT copyright 2019 [employer]. All rights reserved. The codes documented in this report are preliminary and upon player piano technician review may be revised to meet current compliance requirements. Catalina Patricio MD 12/14/2019 1:45:57 PM This report has been signed electronically. Note Initiated On: 12/14/2019 12:51 PM Number of Addenda: 0 [facility] [address] [place] [address] [facility] 12/14/2019 12:5 1 PM CDT us Jessica Cr MD GI PROCEDURE ORDERABLES E dited Result - Final [facility] from Last 3 Months or Most Recently Relevant to Health Maintenance Insurance [place] [id number] [facility] Care Teams Engineering Inspection Assistant Relationship Specialty Start Date End Date Huyen Vizcarra MD [address] [place] [address] PCP - General 12/26/19 Huyen Vizcarra MD [address] [place] [address] Internal Medicine 12/26/19
== END 2024-09-20 10:22 | disposition home or self-care (01) ==
LOC: ANHSURGERY 10:27
PROVIDERS: PCP Internal Medicine; Visit Provider Surgery Plastic and Reconstructive Surgery
DX: Z41.1 Encounter for cosmetic surgery (principal)
CPT/HCPCS: 93005

== ENCOUNTER 2024-09-22 00:25 | Day surgery (SDC) | payer OTHER, SELFPAY ==
[2024-09-19 12:28] VITALS: BMI 18.6
--- NOTE | 2024-09-19 12:29 | PC.NURSE ---
Report to the Outpatient Waiting Room, entrance under the green pavilion located off [facility], at time _0600_ on date _[phone]_. Planned Procedure Time: _0730_.? Time changes happen often and if your time is changed the preop area will call you the afternoon before. - You and your visitor will be asked to self-screen and do not enter if you have any COVID symptoms. Please call surgeon if you need to reschedule. - A mask is optional within the hospital at this time. Patients may have clear liquids (water, carbonated beverages, clear teas, apple juice) until 3 hours prior to surgery with a maximum of 20 ounces. - No food from midnight until time of surgery and no smoking, or chewing tobacco (or any form of nicotine). No chewing gum, candy or mints. Take only the following medications with a SIP of water on the morning of surgery: ____None DO NOT STOP ANY OF YOUR OTHER PRESCRIPTION MEDICATIONS PRIOR TO SURGERY EXCEPT THE FOLLOWING Hold all vitamins and supplements for 3 days per anesthesiologist. Medications to discontinue per physician Date to take last dose___Stop now.____ Please no make-up, nail setswana, hairspray, perfume, deodorant, or body powder the day of surgery.? No jewelry (including any body piercings) or valuables the day of surgery, leave them at home.? Please take a shower or bath the night before, or the morning of, surgery with an antibacterial soap.? Wear comfortable, loose fitting clothing.? - Jewelry must be removed prior to entering the operating room.? Rings and piercings that are not removed may be cut off. - The hospital will not accept responsibility for valuables.? - Please leave all valuables, including medications, at home the day of surgery. If you are going home after surgery, a licensed ems driver must drive you home.? - NO public transportation without another adult if you receive anesthesia. - We recommend that an adult stay with you for 24 hours following discharge. - We also recommend that you do not drive, make important decision, drink alcoholic beverages, or take any drugs that were not prescribed by your health care provider for at least 24 hours after your discharge time. Follow any additional instructions given to you from your surgeon. Telephone instructions given to __Stameiry___and asked if any additional questions and then verbalized understanding. Patient advised to call surgeon office or pre surgery nurse liaison [phone] if any additional questions.
[2024-09-22] VITALS (7 sets, daily range): BP systolic 103–133; BP diastolic 71–80; PULSE 78–99; RESP 10–17; TEMP 36.3–36.9; O2SAT 99–100
--- OUTSIDE RECORDS SUMMARY | 2024-09-22 00:28 | XMS_ITS | Referral Summary ---
Author Organization [facility] Address [address] [place] [address] Care Team Providers Care Spot Welder Name Role Phone Jessica Marquis MD Primary [...] on file Legal Sex Female 6:47 PM AIR BRAKES INSPECTOR Gender Identity Not on file Sexual Orientation [...] Read Routine (OP Routine) 05/12/2024 1:11 PM AIR BRAKES INSPECTOR Screening mammogram, encounter for PAP AND HIGH RISK HPV, REFLEX TO GENOTYPING Routine 2023 12:10 PM CDT Well woman exam COLONOSCOPY Routine 12/14/2019 from Last 3 Months or Most Recently Relevant to Health Maintenance Results * Screening Mammogram Bilateral W Ricco (05/12/2024 1:11 PM AIR BRAKES INSPECTOR) Anatomical Region Laterality Modality Breast Bilateral Mammography Impressions 05/16/2024 3:43 PM AIR BRAKES INSPECTOR BI-RADS ATLAS category (overall): 1 - Negative There is no mammographic evidence of malignancy. A 1 year screening mammogram is recommended. The patient has been or will be contacted. We recommend annual screening mammography for women at average risk of breast cancer beginning at age 40, based on guidelines of the [place] [employer] (ACR Practice Parameter for the Performance of Screening and Diagnostic Mammography) and [place] [employer]. For women with and elevated risk of breast cancer, please refer to the ACR Practice Parameter for specific screening recommendations. The patient will be entered into a reminder system with a target due date of 1 year for her next screening exam. Narrative 05/16/2024 3:43 PM AIR BRAKES INSPECTOR Screening Mammogram Bilateral W Ricco: 05/12/24 The [...] CDT 01/13/2023 12:10 PM CDT Narrative PATHOLOGY [facility] - 01/15/2023 3:48 PM CDT [facility] Department of Pathology [address] [place] [address] Final Report with Addendum Note to [...] the details. Patient Name: ZEB PEREZ Address: [address] [place] [address] Gender: F : 1970 (Age: 53) Service: Location: N : [id number] [facility] #: [id number] Patient Type: [facility] SPECIMEN Taken: 2023 Received: 01/13/2023 Accessioned:: 01/13/2023 Reported: 01/15/2023 Physician(s): Lizabeth Graff M.D. [facility] Diagnosis: SOURCE OF SPECIMEN SCREENING [...] this test have been verified by the [facility] Molecular Infectious Disease laboratory. Correlate with reported [...] as part of an ongoing quality control coordinator program and in compliance with federally mandated [...] characteristics determined by the Surgical Pathology Department [facility]. It has not been cleared or approved by the U. S. Food and Drug Administration. Lizabeth Graff MD LAB CYTOLOGY ORDERABLES Final Result PATHOLOGY [facility] * Colonoscopy (12/14/2019) Anatomical Region Laterality Modality Other 12/14/2019 Narrative 12/14/2019 Report in care everywhere Historical Provider ENDOSCOPY PROCEDURES Veronica l Result from Last 3 Months or Most Recently Relevant to Health Maintenance Insurance [facility] HMO/PPO Address: [address] [phone] Care Teams Spot Welder Relationship Specialty Start Date End Date Jessica Marquis MD PCP - General Internal Medicine 08/28/20
--- OUTSIDE RECORDS SUMMARY | 2024-09-22 00:28 | XMS_ITS | Clinical Summary ---
Author Organization [facility] Address [address] [place] [address] Care Team Providers Care Medical Researcher Name Role Phone Huyen Vizcarra MD Primary Care Provider [phone] Huyen Vizcarra MD Unavailable [phone] Source Comments [facility],non-owned Affiliates and Associated Physician Practices is amultiple site organization consisting of ambulatory clinics and hospital sitesin [place], [place], [place] and [place]. This disclosure is being madepursuant to the Care Everywhere program and may not contain all information available regarding this patient. Last updated 17.[facility] Allergies No known active allergies Medications * [...] bowel preparation was evaluated using the BBPS ([place] Bowel Preparation Scale) with scores of: Right [...] entire procedure. Procedure Code(s): --- Professional --- 50333, Colonoscopy, flexible; diagnostic, including collection of specimen(s) by brushing or washing, when performed (separate procedure) Diagnosis Code(s): --- Professional --- Z12.11, Encounter for screening for malignant neoplasm of colon CPT copyright 2019 [place] [employer]. All rights reserved. The codes documented in this report are preliminary and upon remote coders review may be revised to meet current compliance requirements. Catalina Patricio MD 12/14/2019 1:45:57 PM This report has been signed electronically. Note Initiated On: 12/14/2019 12:51 PM Number of Addenda: 0 [facility] [address] [place] [address] [facility] 12/14/2019 12:5 1 PM CDT us Jessica Cr MD GI PROCEDURE ORDERABLES E dited Result - Final [facility] from Last 3 Months or Most Recently Relevant to Health Maintenance Insurance [place] [id number] [facility] Care Teams Medical Researcher Relationship Specialty Start Date End Date Huyen Vizcarra MD [address] [place] [address] PCP - General 12/26/19 Huyen Vizcarra MD [address] [place] [address] Internal Medicine 12/26/19
--- OUTSIDE RECORDS SUMMARY | 2024-09-22 00:28 | XMS_ITS | Clinical Summary ---
Author Organization [facility] Medical Office Building Address [address] [place] [id number] Care Team Providers Care Bunch Maker Name Role Phone Jessica Marquis MD Primary [...] on file Legal Sex Female 6:47 PM ORACLE SOA CONSULTANT Gender Identity Not on file Sexual Orientation [...] Read Routine (OP Routine) 05/12/2024 1:11 PM ORACLE SOA CONSULTANT Screening mammogram, encounter for PAP AND HIGH RISK HPV, REFLEX TO GENOTYPING Routine 2023 12:10 PM CDT Well woman exam COLONOSCOPY Routine 12/14/2019 from Last 3 Months or Most Recently Relevant to Health Maintenance Results * Screening Mammogram Bilateral W Ricco (05/12/2024 1:11 PM ORACLE SOA CONSULTANT) Anatomical Region Laterality Modality Breast Bilateral Mammography Impressions 05/16/2024 3:43 PM ORACLE SOA CONSULTANT BI-RADS ATLAS category (overall): 1 - Negative There is no mammographic evidence of malignancy. A 1 year screening mammogram is recommended. The patient has been or will be contacted. We recommend annual screening mammography for women at average risk of breast cancer beginning at age 40, based on guidelines of the [employer] (ACR Practice Parameter for the Performance of Screening and Diagnostic Mammography) and [employer]ians [employer] Gynec[employer]. For women with and elevated risk of breast cancer, please refer to the ACR Practice Parameter for specific screening recommendations. The patient will be entered into a reminder system with a target due date of 1 year for her next screening exam. Narrative 05/16/2024 3:43 PM ORACLE SOA CONSULTANT Screening Mammogram Bilateral W Ricco: 05/12/24 The [...] CDT 01/13/2023 12:10 PM CDT Narrative PATHOLOGY [facility] - 01/15/2023 3:48 PM CDT [facility] Department of Pathology [address] [place] [address] Final Report with Addendum Note to [...] the details. Patient Name: ZEB PEREZ Address: [address] [place] [address] Gender: F : 1970 (Age: 53) Service: Location: [facility] #: [id number] Patient Type: [facility] [place] SPECIMEN Taken: 2023 Received: 01/13/2023 Accessioned:: 01/13/2023 Reported: 01/15/2023 Physician(s): Lizabeth Graff M.D. [facility] Diagnosis: SOURCE OF SPECIMEN SCREENING THIN [...] this test have been verified by the [facility] Molecular Infectious Disease laboratory. Correlate with [...] determined by the Surgical Pathology Department at [facility] as part of an ongoing lead quality technician program and in compliance with [...] characteristics determined by the Surgical Pathology Department [facility]. It has not been cleared or approved by the U. S. Food and Drug Administration. Lizabeth Graff MD LAB CYTOLOGY ORDERABLES Final Result PATHOLOGY [facility] * Colonoscopy (12/14/2019) Anatomical Region Laterality Modality Other 12/14/2019 Narrative 12/14/2019 Report in care everywhere Historical Provider ENDOSCOPY PROCEDURES Veronica l Result from Last 3 Months or Most Recently Relevant to Health Maintenance Insurance [facility] Care Teams Bunch Maker Relationship Specialty Start Date End Date Jessica Marquis MD PCP - General Internal Medicine 08/28/20
--- OUTSIDE RECORDS SUMMARY | 2024-09-22 00:28 | XMS_ITS | Clinical Summary ---
Author Organization [facility] Address [address] [place] [address] Phone Care Team Providers Care Circuit Design Engineer Name Role Phone Unavailable Primary Care Provider [...] Most Recently Relevant to Health Maintenance Insurance [facility] [place] [id number]
--- OUTSIDE RECORDS SUMMARY | 2024-09-22 00:28 | XMS_ITS | Encounter Summary ---
Author Organization [facility] Address [address] [facility] [place] [address] Care Team Providers Care Distributor Cleaner Name Role Phone Huyen Vizcarra MD Primary Care Provider [phone] Huyen Vizcarra MD Unavailable [phone] Encounter Details Date Type Department Care Team (Late st Contact Info) Description 03/06/2022 Lab Requisition [facility] Care DermPath Lab [address] [place] [id number] Harman Castaneda MD [address] [facility] [place], [place] [id number] Social History Tobacco Use Types Packs/Day Years [...] Comments DERMATOPATHOLOGY Routine 03/04/2022 12:0 0 AM TRANSFER STATION OPERATOR documented in this encounter Results * DERMATOPATHOLOGY (03/04/2022 12:00 AM TRANSFER STATION OPERATOR) Case Report Dermatopathology Report Case: [id number] Authorizing Provider: Harman Castaneda MD Collected: 03/04/2022 12:00 AM Ordering Location: [facility] DermPath Lab Received: 03/06/2022 06:10 AM Pathologist: Gabi Morel MD Specimen: Skin, right lower medial leg 2 3:19 PM [facility] DERMATOPATHOLOGY LABORATORY Final Diagnosis Specimen A. SKIN, right lower medial leg: SQUAMOUS CELL CARCINOMA, KERATOACANTHOMA TYPE (C44.722) 2 3:19 PM [facility] DERMATOPATHOLOGY LABORATORY at [address] TRANSFER STATION OPERATOR Clinical History [facility] vs. [facility] PATH: [id number] 2 3:19 PM [facility] DERMATOPATHOLOGY LABORATORY Gross Description Specimen A: Received is one formalin filled container labeled with the patient's name and designated right lower medial leg. The specimen consists of a shave biopsy measuring 7x5x2 mm. Jar 0. 2 3:19 PM [facility] DERMATOPATHOLOGY LABORATORY Microscopic Description Specimen A. SKIN, right lower medial leg: Sections show an endo exophytic crateriform lesion with a keratotic plug, formed by confluent follicle-like structures with relatively large keratinocytes and neutrophilic abscesses. 2 3:19 PM TRANSFER STATION OPERATOR DERMATOPATHOLOGY LABORATORY Disclaimer An external and internal positive and negative controls are appropriate for the histochemical, immunohistochemical and immunofluorescence stain(s) in this case (if any), except where stated explicitly. The performance characteristics of the stain(s) cited in this report were developed and its performance characteristic determined by the Dermatopathology Laboratory at [facility], directed by Dr. Shante Smith. These tests need not be, and therefore are not, approved by the [place] Food and Drug Administration. The tests are used for clinical purposes. Billing Codes Specimen Charges Stain Charges 73826 1 2 3:19 PM TRANSFER STATION OPERATOR DERMATOPATHOLOGY LABORATORY Embedded Images 2 3:19 PM TRANSFER STATION OPERATOR DERMATOPATHOLOGY LABORATORY Pathology/Cytolog y TISSUE SPECIMEN FROM SKIN / Unknown 03/04/2022 03/06/2022 6:10 AM TRANSFER STATION OPERATOR Harman Castaneda MD LAB - PATHOLOGY/CYTOLOGY ORDER CHAVA Final Result DERMATOPATHOLOGY LABORATORY [facility] - Department of Dermatology [facility] Medicine [address] [place] [address], [address] [phone] documented in this encounter Visit Diagnoses Not on filedocumented in this encounter Care Teams Distributor Cleaner Relationship Specialty Start Date End Date Huyen Vizcarra MD [address], [place] [address] PCP - General 12/26/19 Huyen Vizcarra MD [address] [place] [address] Internal Medicine 12/26/19 documented as of this encounter
--- OUTSIDE RECORDS SUMMARY | 2024-09-22 00:28 | XMS_ITS | Clinical Summary ---
Author Organization [facility] Address [address] [place] [address] Care Team Providers Care Consumer Recruiter Name Role Phone Unavailable Primary Care Provider Unavailabl e Social History Tobacco Use Types Packs/Day Years Used Date Smoking Tobacco: Never Assessed Comments Unknown Sex and Gender Information Value Date Recorded Sex Assigned at Not on file Legal Sex Female 4:47 PM CDT Gender Identity Not on file Sexual Orientation Not on file Plan of Treatment Health Maintenance Due Date Last Done Comments Cervical Cancer Screening Pa p Smear (Age 30 to 64) Every 3 Years 1969 Colorectal Cancer Screening Colonoscopy (10 Years) 1969 Annual Physical 01/13/1972 Hepatitis C 1987 DTaP, Tdap and Td Vaccines ( 1 - Tdap) 01/13/1988 Hepatitis B Vaccines (1 of 3 - 19+ 3-dose series) 01/13/1988 Cervical Cancer Screening Pa p with HPV Testing (Age 30 to 64) Every 5 Years 1999 Cervical Cancer Screening with HPV 1999 Mammogram Screening 2009 Pneumococcal Vaccine: 50+ Ye ars (1 of 1 - PCV) 2019 Zoster Vaccines (1 of 2) 2019 COVID-19 Vaccine (2023-2 5 season) 2023 Meningococcal B Vaccine Aged Out No l onger eligible based on patient's age to complete this topic Meningococcal Vaccine Aged Out No cynthia tyson eligible based on patient's age to complete this topic RSV Immunizations Under 20 Months Aged Out No longer eligible based on patient's age to complete this topic
[2024-09-22 06:42] LABS: Urine Cotinine NEGATIVE
--- NOTE | 2024-09-22 06:55 | WPDANESEPPF ---
Anes - Initial Pre Proc Eval Procedure: Operation Date: 09/22/24 07:30 Proposed Procedures p Bilateral Breast Augmentation, - Moustapha Taylor MD s Bilateral Breast Mastopexy, - Moustapha Taylor MD s Bilateral Brachioplasty with Liposuction - Moustapha Taylor MD Date/Time: 09/22/24 06:55 Surgeon: Moustapha Taylor MD Pre Op Diagnosis: micromastia, skin laxity, breast ptosis Patient Data Age: 54 Gender: F Height: 1.6 m Weight: 47.7 kg Allergies Allergy/AdvReac Type Severity Reaction Status Date / Time No Known Allergies Allergy Verified 09/19/24 12:18 Home Medications ?Medication ?Instructions ?Recorded ?Confirmed ?Type loratadine-pseudoephedrine ER 10 1 tablet PO DAILY 09/19/24 09/19/24 History mg-240 mg tablet,extended [id number] (AllerClear D-24hr) nitdslzipbpk-otmlgrv-zkefk acid 1 tablet PO DAILY 09/19/24 09/19/24 History 400 mcg-lutein 250 mcg chewable tablet (Centrum Silver) vitamin D3 250 mcg (10,000 1 cap PO DAILY 09/19/24 09/19/24 History unit)-vitamin K2 45 mcg capsule Laboratory Tests 09/22/24 06:27 Cotinine Negative Patient hx anesthesia problems: none Family hx anesthesia problems: none Results Review: All pre-operative results and documents have been reviewed as part of the pre-operative evaluation. [facility] Social History Social History Smoking status: Never smoker Alcohol intake: current Substance use type: marijuana Other substance usage details: Gummies occasionally for sleeping. Living arrangements: with family Spiritual care concerns: No Anes - Eval Final PreProcedure Day of Procedure 09/22/24 06:55 Patient weight: normal Heart: regular rate and rhythm Lungs: clear to auscultation Airway: Mallampati scale class II Neurological: alert and oriented Last oral intake: >/= 8 hours ASA classification: I Emergent: no Anesthetic plan: proceed Anesthesia type and monitoring: general LMA and standard monitoring Results Review: All pre-operative results and documents have been reviewed as part of the pre-operative evaluation. Informed Consent: The patient's anesthetic plan and its attendant risks and benefits were discussed with the patient/family/POA. Questions were solicited and answers provided to the satisfaction of the patient/family/POA.
--- NOTE | 2024-09-22 07:06 | WPDHPUPDATE1 ---
History and Physical Update Update Date/Time: 09/22/24 07:06 History and Physical has been reviewed, including an updated exam of the patient. There are NO changes in the patient's condition. Risks, benefits, and alternatives have been discussed and questions answered. Patient agrees to proceed with procedure.
--- NOTE | 2024-09-22 07:07 | P.OP_ITS ---
Procedure Note - Detailed Date of Procedure 09/22/24 Pre-op Diagnosis micromastia, skin laxity, breast ptosis Post-op Diagnosis Same Procedure Performed Bilateral augmentation mastopexy Bilateral brachioplasty Surgeon Moustapha Tayolr MD Anesthesia General Findings Inverted T Superior medical pedicle Bilateral Dee Dee Castillo SoftTouch 330cc Subfascial Right: REF# [id number] SN [id number] Left: REF# [id number] SN [id number] Lipoaspirate: 650 cc Description of Procedure She is here today for the above. Previously and again today the risks, benefits, alternatives were discussed in extensive detail. I wanted her to be very realistic about the risks involved as well as expectations. We discussed aftercare and what to monitor for. Made sure answered all of her questions to her satisfaction today and consent was obtained. Marked in the preoperative holding area with their verification. The patient was taken to the operating room placed supine on the operating table. Anesthesia was provided by anesthesiology. A surgical time-out was taken. Arms Stab incisions were made and I tumesced with a tumescent solution. Once adequate time for hemostasis suction lipectomy was with a 4 mm basket cannula based on S.A.F.E. technique. This was completed based on preoperative planning, intraoperative observation, and rolling pinch test which was in full agreement. I completely de-fatted the planned resection area and a strip avu lsion technique was completed. Starting proximal to distal a 10 blade was used to excise the intervening skin and this was tacked as we proceed to ensure good closure. This was closed using a 2-0 Quill, 3-0 strata fix, running subcuticular 4-0 Monocryl, and tissue glue medial / Brijjit laterally. Breast She was prepped and draped in a standard sterile fashion. Tumescent was utilized laterally to provide field block Tegaderm nipple [place] were placed. A 15 blade used to make an incision just superior to the inframammary fold leaving a cusp of de-epithelized tissue at the t junction. Dissection was continued until the chest wall as identified. I elevated a subfascial pocket in the appropriate dimensions based on our preoperative planning for the implant. I then copiously irrigated with saline solution and verified a strict hemostasis. Next the use a triple antibiotic and Betadine containing solution to irrigate the pocket. I washed my gloves with the triple antibiotic and Betadine solution. We washed the implant immediately upon opening it with this solution and only opened it when we needed it. I used implant funnel and no-touch technique. The implant was introduced into the pocket using the funnel. Having verified positioning of the implant this was closed using 2-0 PDS. I tailor tacked the breast into position. Placed her in a sitting position. Verified the nipple-areolar location based on preoperative planning as well as intraoperative observations and measurements in full agreement. Suction lipectomy was completed laterally with a 4mm malini cannula. This was based on preoperative planning, intraoperative observation, and rolling pinch which was in full agreement. She was placed supine. I de-epithelialized the pedicle. I then removed the inferior central portion of the breast need making sure the implant was well protected. I elevated medial and lateral tissue flaps as well for planned closure. I closed along the IMF with 2-0 Stratafix. Along the vertical with 2-0 PDS. I closed around the areola with 3-0 strata fix. 3-0 Monocryl along the vertical. 3-0 Stratafix along the IMF. I finally closed everything with running subcuticular 4-0 Monocryl and tissue glue as well as Brijjits on vertical incision. Fluffs, wraps, and surgical bra were placed. Taken to the PACU without difficulty. All instrument sponge counts were correct at the end of the case. Estimated Blood Loss 50 Drains No Packing No Pathology None sent Complications No immediate complications Condition Stable Disposition PACU
[2024-09-22] MEDS: SCOPOLAMINE 1 MG PATCH 1 PATCH TRANSDERM (07:30)
[2024-09-22] MEDS: NACL 0.9% IRRIG POUR BOTTLE 900 ML, GENTAMICIN SULFATE INJ 160 MG, ceFAZolin 2 GM, POVI... IRRIGATION (07:42)
[2024-09-22] MEDS: ceFAZolin 2 GM/D5W 50 ML 2 GM/50 ML BAG IVPB (07:42)
[2024-09-22] MEDS: LACTATED RINGERS IRRIG 1,000 ML, LIDOCAINE 1% LOCAL INJ 50 ML, EPINEPHrine HCL INJ 1 MG... INFILTRATE (07:42)
[2024-09-22] MEDS: TRANEXAMIC ACID 1,000MG/ISO100 1,000 MG/100 ML BAG 200 MG IVPB (07:42)
--- NOTE | 2024-09-22 11:38 | SUR.OPER ---
500 cc's discarded from [facility]
[2024-09-22] MEDS: LACTATED RINGERS 1,000 ML 30 ML IV CONT ×3 (11:46→12:00)
--- NOTE | 2024-09-22 12:04 | SUR.PHASEI ---
SCD TO LEFT CALF; NOT TO RIGHT CALF D/T IV IN FOOT WITH IVF'S INFUSING.
[2024-09-22] MEDS: oxyCODONE HCL (*CRX) 5 MG TAB IR PO (13:05)
[2024-09-22] MEDS: ONDANSETRON INJ 4 MG/2 ML VIAL IV PUSH (13:06)
== END 2024-09-22 13:36 | disposition home or self-care (01) ==
PROVIDERS: PCP Internal Medicine; Visit Provider Surgery Plastic and Reconstructive Surgery
PROC: (CPT 19325; principal; 2024-09-22 07:30)
PROC: (CPT 19316; 2024-09-22 07:30)
PROC: (CPT 15836; 2024-09-22 07:30)
DX: Z41.1 Encounter for cosmetic surgery (principal); N64.82 Hypoplasia of breast; L57.4 Cutis laxa senilis; N64.81 Ptosis of breast; F12.90 Cannabis use, unspecified, uncomplicated
CPT/HCPCS: 19325; 19316; 15836; 15878; 80307; A9270; J0171; J0690; J1100; J1171; J1200; J1580; J2003; J2250; J2371; J2405; J2704; J3010; J7120